=== PATIENT | male | born 1985 | race Caucasian/White ===

== ENCOUNTER 2016-11-21 15:10 | Outpatient (CLI) | payer OTHER | END 2016-11-21 15:11 | disposition critical access hospital (66) | DX: S47.2XXA Crushing injury of left shoulder and upper arm, initial encounter (principal); W01.10XA Fall on same level from slipping, tripping and stumbling with subsequent striking against unspecified object, initial encounter; Y93.51 Activity, roller skating (inline) and skateboarding; Y92.39 Other specified sports and athletic area as the place of occurrence of the external cause | CPT/HCPCS: A0425; A0427 ==

== ENCOUNTER 2016-11-21 15:35 | Emergency (ER) | payer OTHER ==
[2016-11-21] MEDS ORDERED: HYDROmorphone 1 MG/ML SYRINGE IVP STA ×3 (15:40→17:27)
[2016-11-21] MEDS ORDERED: HYDROmorphone 1 MG/ML SYRINGE ONE ×3 (15:45→17:24)
[2016-11-21] MEDS ORDERED: BUPIVACAINE 0.5% PF 30 ML VIAL ONE (16:38)
[2016-11-21] MEDS ORDERED: PROPOFOL 200 MG/20 ML VIAL IVP ONE (17:25)
[2016-11-21] MEDS ORDERED: ONDANSETRON 4 MG/2 ML VIAL ONE (17:25)
[2016-11-21] MEDS ORDERED: PROPOFOL 200 MG/20 ML VIAL IVP STA (17:27)
[2016-11-21] MEDS ORDERED: ONDANSETRON 4 MG/2 ML VIAL IVP STA (17:27)
[2016-11-21] MEDS ORDERED: ONDANSETRON ODT 4 MG TABLET TL STA (18:55)
[2016-11-21] MEDS ORDERED: ONDANSETRON ODT 4 MG TABLET ONE (19:02)
[2016-11-21] MEDS ORDERED: PROMETHAZINE 25 MG/1 ML VIAL IM STA (19:10)
[2016-11-21] MEDS ORDERED: PROMETHAZINE 25 MG/1 ML VIAL ONE (19:12)
== END 2016-11-21 20:03 | disposition home or self-care (01) ==
DX: S43.015A Anterior dislocation of left humerus, initial encounter (principal); V00.131A Fall from skateboard, initial encounter; Y93.51 Activity, roller skating (inline) and skateboarding; Y92.89 Other specified places as the place of occurrence of the external cause; Y99.8 Other external cause status; R11.10 Vomiting, unspecified
CPT/HCPCS: 23650; 73020; 73030; 73060; 94770; 96372; 96374; 96375; 96376; 99152; 99284; J1170; Q0162

== ENCOUNTER 2017-01-02 17:31 | Outpatient (CLI) | payer OTHER | END 2017-01-02 17:32 | disposition critical access hospital (66) | LOC: EMS 17:31 | PROVIDERS: ATTEND Surgery | DX: S49.82XA Other specified injuries of left shoulder and upper arm, initial encounter (principal); W01.0XXA Fall on same level from slipping, tripping and stumbling without subsequent striking against object, initial encounter; Y93.01 Activity, walking, marching and hiking; Y92.832 Beach as the place of occurrence of the external cause | CPT/HCPCS: A0425; A0427 ==

== ENCOUNTER 2017-01-02 17:47 | Emergency (ER) | payer OTHER ==
[2017-01-02] MEDS ORDERED: HYDROmorphone 1 MG/ML SYRINGE IVP STA ×2 (18:00→18:51)
[2017-01-02] MEDS ORDERED: KETOROLAC 60 MG/2 ML VIAL IVP STA (18:00)
[2017-01-02] MEDS ORDERED: diazePAM INJ 5 MG/ML SYRINGE IVP STA (18:01)
[2017-01-02] MEDS ORDERED: diazePAM INJ 5 MG/ML SYRINGE ONE (18:06)
[2017-01-02] MEDS ORDERED: KETOROLAC 30 MG/ML VIAL ONE (18:06)
[2017-01-02] MEDS ORDERED: HYDROmorphone 1 MG/ML SYRINGE ONE ×2 (18:06→18:51)
--- NOTE | 2017-01-02 18:42 | XRAY Preliminary Report ---
Exam: XR Shoulder 2 View LT IMPRESSION: There is anterior shoulder dislocation. [facility] SITE ID: [id number]
--- NOTE | 2017-01-02 18:44 | XRAY Report ---
EXAM: LEFT SHOULDER RADIOGRAPHY EXAM DATE: 01/02/2017 06:27 PM. CLINICAL HISTORY: Dislocation. COMPARISON: 11/21/2016. TECHNIQUE: 2 views. FINDINGS: There is anterior shoulder dislocation. No clearly acute bony abnormalities are seen. IMPRESSION: There is anterior shoulder dislocation. [facility] Referring Provider Line: [phone] SITE ID: [id number]
[2017-01-02] MEDS ORDERED: PROPOFOL 200 MG/20 ML VIAL IVP ONE (19:13)
[2017-01-02] MEDS ORDERED: PROPOFOL 200 MG/20 ML VIAL IVP STA (19:50)
--- NOTE | 2017-01-02 19:53 | ED Physician Documentation ---
PD HPI UPPER EXT INJURY - Stated complaint Stated Complaint: L SHOULDER PX - Chief complaint Chief Complaint: Ext Problem - History obtained from History obtained from: Patient - History of Present Illness Location: Left, Shoulder Type of injury: Fall [place] with left arm, causing dislocation of left shoulder) Where injury occurred: Other (beach) Timing - onset: Today Timing - details: Abrupt onset, Still present Improved by: No: Rest Worsened by: Moving, Palpating Associated symptoms: No: Weakness, Numbness Similar symptoms before: Diagnosis (recent shoulder dislocation, and had been using it pretty well.) Review of Systems Cardiac: denies: Chest pain / pressure GI: denies: Abdominal Pain Musculoskeletal: denies: Neck pain, Back pain Neurologic: denies: Headache, Head injury PD PAST MEDICAL HISTORY - Past Medical History Cardiovascular: None Respiratory: Asthma Endocrine/Autoimmune: None GI: None : None HEENT: Other Psych: ADD/ADHD Musculoskeletal: Other Derm: None - Past Surgical History Past Surgical History: Yes HEENT: Other - Present Medications Home Medications: Ambulatory Orders Medication Instructions Recorded Confirmed Ibuprofen 600 mg PO TID #20 tablet 03/07/14 04/08/14 Loratadine [Claritin] 10 mg PO DAILY 03/07/14 04/08/14 Dextroamphetamine/Amphetamine 25 mg PO DAILY 04/05/14 04/08/14 [Adderall Xr 25 mg Capsule] Ibuprofen [Motrin] 400 mg PO Q6H PRN #30 tablet 11/21/16 Oxycodone HCl/Acetaminophen 1 each PO Q6HR PRN #10 tablet 11/21/16 [Percocet 5-325 mg Tablet] Hydrocodone/Acetaminophen [[place] 1 each PO Q6H PRN #20 tablet 01/02/17 5-325 Tablet] Naproxen [Naprosyn] 500 mg PO BID #20 tablet 01/02/17 - Allergies Allergies/Adverse Reactions: Allergies Allergy/AdvReac Type Severity Reaction Status Date / Time No Known Drug Allergies Allergy Verified 03/07/14 12:12 - Social History Does the pt smoke?: No Smoking Status: Never smoker Does the pt drink ETOH?: Yes Does the pt have substance abuse?: No PD ED PE NORMAL - Vitals Vital signs reviewed: Yes - General General: Alert and oriented X 3, Well developed/nourished, Other (marked apin due to shoulder) - HEENT HEENT: Atraumatic - Neck Neck: Supple, no meningeal sign, No bony TTP - Cardiac Cardiac: RRR - Respiratory Respiratory: Clear bilaterally - Abdomen Abdomen: Soft, Non tender - Back Back: No spinal TTP - Extremities Extremities: Other (left shoulder with palpable anterior dislocation. ) - Neuro Neuro: No motor deficit, No sensory deficit Results - Vitals Vitals: Vital Signs - 24 hr 01/02/17 01/02/17 01/02/17 17:50 18:31 19:17 Temperature 37.2 C Heart Rate 64 77 79 Respiratory 18 18 16 Rate Blood Pressure 161/104 H 190/107 H O2 Saturation 98 100 97 01/02/17 01/02/17 01/02/17 19:20 19:25 19:30 Temperature Heart Rate 84 83 79 Respiratory 18 17 16 Rate Blood Pressure O2 Saturation 01/02/17 01/02/17 01/02/17 19:34 19:35 19:40 Temperature Heart Rate 81 46 L 85 Respiratory 14 14 18 Rate Blood Pressure 162/87 H 183/98 H O2 Saturation 97 99 01/02/17 01/02/17 01/02/17 19:42 19:45 20:01 Temperature Heart Rate 85 88 90 Respiratory 19 19 18 Rate Blood Pressure 183/98 H 129/79 O2 Saturation 99 96 Oxygen O2 Source Nasal cannula Oxygen Flow Rate 3 - Rads (name of study) shoulder Radiology: Prelim report reviewed, EMP read contemporaneously (dislocation without fracture) Procedures - Reduction Body part reduced: Left, Shoulder Fracture or dislocation: Dislocation Anesthesia: Marcaine (enter cc) (into shoulder 6), Conscious sedation, Dilaudid Shoulder reduction technique: [place] / ext rotation Reduction aftercare: NV intact, Alignment improved, Sling - Procedural sedation Sedation prep: Informed consent, PE performed, AHA 1 - healthy Sedation medications: dilaudid, propofol Patient status during sedation: Drowsy, Responds to tactile, Vitals remained stable, Maintained airway. No: Respiratory depression, Hypoxia Sedation recovery: Recovered uneventfully Departure - Departure Disposition: 01 Home, Self Care Clinical Impression: Anterior shoulder dislocation Qualifiers: Encounter type: initial encounter Laterality: left Qualified Code(s): S43.015A - Anterior dislocation of left humerus, initial encounter Condition: Stable Record reviewed to determine appropriate education?: Yes Instructions: ED Dislocation Shoulder Redu Follow-Up: Idalia Sarkar MD [Provider Admit Priv/Credential] - Prescriptions: Naproxen [Naprosyn] 500 mg PO BID #20 tablet Hydrocodone/Acetaminophen [[place] 5-325 Tablet] 1 each PO Q6H PRN #20 tablet PRN Reason: Pain Comments: Sling for shoulder with gentle range of motion several times daily so it does not stiffen up. Naproxen twice daily. Add hydrocodone for pain as needed. Follow up with Orthopedics, call tomorrow for appt for next week. Discharge Date/Time: 01/02/17 20:07
[2017-01-02 20:03] VITALS: BP 129/79
== END 2017-01-02 20:07 | disposition home or self-care (01) ==
LOC: EDUNIT# → ED 17:47
DX: S43.015A Anterior dislocation of left humerus, initial encounter (principal); W01.198A Fall on same level from slipping, tripping and stumbling with subsequent striking against other object, initial encounter; Y93.01 Activity, walking, marching and hiking; Y92.832 Beach as the place of occurrence of the external cause
CPT/HCPCS: 23650; 73030; 94770; 96374; 96375; 99152; 99283; 99284; J1170

== ENCOUNTER 2017-02-24 15:19 | Outpatient (CLI) | payer OTHER | END 2017-02-24 15:20 | disposition critical access hospital (66) | LOC: EMS 15:19 | PROVIDERS: ATTEND Surgery | DX: M25.512 Pain in left shoulder (principal); X50.9XXA Other and unspecified overexertion or strenuous movements or postures, initial encounter; Y93.H2 Activity, gardening and landscaping; Y92.007 Garden or yard of unspecified non-institutional (private) residence as the place of occurrence of the external cause | CPT/HCPCS: A0425; A0429 ==

== ENCOUNTER 2017-02-24 15:52 | Emergency (ER) | payer OTHER ==
[2017-02-24] MEDS ORDERED: fentaNYL 100 MCG/2 ML VIAL IVP STA (15:57)
[2017-02-24] MEDS ORDERED: fentaNYL 100 MCG/2 ML VIAL ONE (16:01)
--- NOTE | 2017-02-24 16:01 | ED Physician Documentation ---
PD HPI UPPER EXT INJURY - Stated complaint Stated Complaint: DISLOCATED SHOULDER - Chief complaint Chief Complaint: Ext Problem - History obtained from History obtained from: Patient, EMS - History of Present Illness Location: Left, Shoulder (recurrent dislocation, reaching over his head at home today) Where injury occurred: Home Timing - details: Abrupt onset Pain level max: 10 Review of Systems Ten Systems: 10 systems reviewed and negative Constitutional: reports: Reviewed and negative Nose: reports: Reviewed and negative Throat: reports: Reviewed and negative PD PAST MEDICAL HISTORY - Past Medical History Cardiovascular: None Respiratory: Asthma Endocrine/Autoimmune: None GI: None : None HEENT: Other Psych: ADD/ADHD Musculoskeletal: Other Derm: None - Past Surgical History Past Surgical History: Yes HEENT: Other - Present Medications Home Medications: Ambulatory Orders Medication Instructions Recorded Confirmed Ibuprofen 600 mg PO TID #20 tablet 03/07/14 04/08/14 Loratadine [Claritin] 10 mg PO DAILY 03/07/14 04/08/14 Dextroamphetamine/Amphetamine 25 mg PO DAILY 04/05/14 04/08/14 [Adderall Xr 25 mg Capsule] Ibuprofen [Motrin] 400 mg PO Q6H PRN #30 tablet 11/21/16 Oxycodone HCl/Acetaminophen 1 each PO Q6HR PRN #10 tablet 11/21/16 [Percocet 5-325 mg Tablet] Hydrocodone/Acetaminophen [[place] 1 each PO Q6H PRN #20 tablet 01/02/17 5-325 Tablet] Naproxen [Naprosyn] 500 mg PO BID #20 tablet 01/02/17 Oxycodone HCl/Acetaminophen 1 each PO Q6H PRN #10 tablet 02/24/17 [Percocet 10-325 mg Tablet] - Allergies Allergies/Adverse Reactions: Allergies Allergy/AdvReac Type Severity Reaction Status Date / Time No Known Drug Allergies Allergy Verified 03/07/14 12:12 - Social History Does the pt smoke?: No Smoking Status: Never smoker Does the pt drink ETOH?: Yes Does the pt have substance abuse?: No - Family History Family history: reports: Non contributory PD ED PE NORMAL - Vitals Vital signs reviewed: Yes - General General: Alert and oriented X 3, Other (v uncomfortable) - HEENT HEENT: PERRL, EOMI - Neck Neck: Supple, no meningeal sign, No bony TTP - Cardiac Cardiac: RRR, No murmur - Respiratory Respiratory: No respiratory distress, Clear bilaterally - Abdomen Abdomen: Soft, Non tender - Derm Derm: Normal color, Warm and dry - Extremities Extremities: Other (Clinical anterior L shoulder dislocation, NVI) - Neuro Neuro: Alert and oriented X 3, Normal speech - Psych Psych: Normal mood, Normal affect Results - Vitals Vitals: Vital Signs - 24 hr 02/24/17 02/24/17 02/24/17 15:53 16:16 16:18 Temperature 37.0 C Heart Rate 70 63 70 Respiratory 18 16 15 Rate Blood Pressure 179/99 H 104/82 H O2 Saturation 97 98 2 L 02/24/17 02/24/17 02/24/17 16:21 16:23 16:31 Temperature Heart Rate 66 74 74 Respiratory 14 17 17 Rate Blood Pressure 117/92 H 137/78 H O2 Saturation 97 97 97 02/24/17 16:50 Temperature Heart Rate 77 Respiratory 16 Rate Blood Pressure 115/78 O2 Saturation 98 Oxygen O2 Source Nasal cannula Oxygen Flow Rate 2 - Rads (name of study) L shoulder 3v Radiology: EMP read contemporaneously (Left anterior shoulder dislocation) Procedures - Reduction Body part reduced: Left, Shoulder Fracture or dislocation: Dislocation Shoulder reduction technique: [place] / ext rotation Reduction aftercare: NV intact, Alignment improved - Procedural sedation Sedation prep: Informed consent, Time out completed, Last meal (12p), PE performed, AHA 1 - healthy Sedation medications: propofol (100mg IV then 50mg IVP) Patient status during sedation: Responds to tactile, Vitals remained stable, Maintained airway. No: Hypoxia, Needed resp assistance Sedation recovery: Recovered uneventfully Departure - Departure Disposition: 01 Home, Self Care Clinical Impression: Shoulder dislocation Qualifiers: Encounter type: initial encounter Laterality: left Qualified Code(s): S43.005A - Unspecified dislocation of left shoulder joint, initial encounter Condition: Good Record reviewed to determine appropriate education?: Yes Instructions: ED Dislocation Shoulder Redu Follow-Up: [facility] [Provider Group] - Within 1 week Prescriptions: Oxycodone HCl/Acetaminophen [Percocet 10-325 mg Tablet] 1 each PO Q6H PRN #10 tablet PRN Reason: Pain Comments: Do not drink or drive while taking narcotic pain medication. Note that many narcotic pain relievers also contain Tylenol/acetaminophen. Please ensure that your total dose of acetaminophen from all sources does not exceed 3 g (3000 mg) per day. You may get constipated while on this medication. Take a stool softener such as Colace twice a day while you are on it. Also add an [id number] laxative such as senna or MiraLAX on any day that you do not have a bowel movement. If you received a narcotic pain medication or sedative while in the emergency department, do not drive for the next 24 hours.
[2017-02-24] MEDS ORDERED: PROPOFOL 200 MG/20 ML VIAL IVP ONE ×2 (16:12→16:16)
[2017-02-24] MEDS ORDERED: HYDROmorphone 1 MG/ML SYRINGE IVP STA (16:12)
[2017-02-24] MEDS ORDERED: HYDROmorphone 1 MG/ML SYRINGE ONE (16:12)
[2017-02-24] MEDS: PROPOFOL 200 MG/20 ML VIAL IVP STA ×2 (16:14→16:28)
[2017-02-24] MEDS ORDERED: PROPOFOL 200 MG/20 ML VIAL IVP STA (16:24)
--- NOTE | 2017-02-24 16:35 | XRAY Preliminary Report ---
Exam: XR Shoulder 2 View LT IMPRESSION: Left anterior glenohumeral shoulder joint dislocation. [facility] SITE ID: [id number]
--- NOTE | 2017-02-24 16:38 | XRAY Report ---
EXAM: LEFT SHOULDER RADIOGRAPHY EXAM DATE: 02/24/2017 04:12 PM. CLINICAL HISTORY: Recurrent dislocation. COMPARISON: Left shoulder 01/02/2017. TECHNIQUE: 3 views. FINDINGS: Bones: No acute fractures are seen. Joints: Left anterior glenohumeral shoulder joint dislocation. The acromioclavicular joint appears wi thin normal limits. Soft tissues: Unremarkable IMPRESSION: Left anterior glenohumeral shoulder joint dislocation. [facility] Referring Provider Line: [phone] SITE ID: [id number]
[2017-02-24 17:13] VITALS: BP 146/94
--- NOTE | 2017-02-24 17:19 | XRAY Preliminary Report ---
Exam: XR Shoulder 2 View LT IMPRESSION: Status post reduction of the left glenohumeral shoulder joint. Alignment appears within n ormal limits. No acute fractures are seen. [facility] SITE ID: [id number]
--- NOTE | 2017-02-24 17:21 | XRAY Report ---
EXAM: LEFT SHOULDER RADIOGRAPHY EXAM DATE: 02/24/2017 04:52 PM. CLINICAL HISTORY: Post reduction. COMPARISON: Left shoulder 02/24/2017. TECHNIQUE: 2 views. FINDINGS: Bones: No acute fractures are seen. Joints: The glenohumeral and acromioclavicular joints are normal in alignment. Soft tissues: Unremarkable IMPRESSION: Status post reduction of the left glenohumeral shoulder joint. Alignment appears within n ormal limits. No acute fractures are seen. [facility] Referring Provider Line: [phone] SITE ID: [id number]
== END 2017-02-24 18:20 | disposition home or self-care (01) ==
LOC: EDUNIT# → ED 15:52
DX: S43.005A Unspecified dislocation of left shoulder joint, initial encounter (principal); X50.1XXA Overexertion from prolonged static or awkward postures, initial encounter; Y93.89 Activity, other specified; Y92.009 Unspecified place in unspecified non-institutional (private) residence as the place of occurrence of the external cause
CPT/HCPCS: 23650; 73030; 94770; 96374; 96375; 99152; 99284; J1170

== ENCOUNTER 2022-03-01 17:23 | Outpatient (CLI) | payer OTHER | END 2022-03-01 17:24 | disposition EMS.NT | LOC: EMS 17:23 | DX: Z04.1 Encounter for examination and observation following transport accident (principal) ==